=== PATIENT | male | born 1980 | race Caucasian/White ===

== ENCOUNTER 2019-02-17 03:19 | Emergency (ER) | payer OTHER ==
[~2019-02-17] VITALS: Ht 180.3 cm; Wt 95.5 kg
[~2019-02-17 03:19] MED LIST: ACET500C5 PO; BEN25 PO; CEPH-443 PO; SULF1TAB31 PO
[2019-02-17 03:22] VITALS: Ht 180.3 cm; Wt 95.5 kg
--- NOTE | 2019-02-17 03:45 | ERD ---
ER Documentation Chief Complaint Chief Complaint states possible insect bite to right wrist, c/o swelling/itch HPI This is a 39-year-old male who presents to the emergency department with c omplaints of right wrist swelling/itchiness that started at around 6:20 PM today. 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 Stated that he is right-handed. Denies headache, head injury, loss of consciousness, dizziness, neck pain, neck stiffness, throat pain, difficulty swallowing, difficulty breathing lying flat, shoulder pain, chest pain, back pain, abdominal pain, nausea, vomiting, constipation, diarrhea, urinary symptoms, loss of bowel and bladder control, difficulty walking due to pain, numbness or tingling sensation, calf pain, recent travel, recent major surgery in the last 3 weeks, calf pain, recent long travel, recent exposure to any illness, recent antibiotic use in the last 3 months, fever, chills, seizures. Past medical history: Denies. Surgical history: Denies. Social: Denies smoking, use of alcoholic beverages, use of illegal drugs. ROS All systems reviewed and are negative except as per history of present illness. Medications Home Meds Active Scripts Diphenhydramine Hcl* (Benadryl*) 25 Mg Cap, 25 MG PO Q6 PRN for ITCHING/RASH, #30 TAB Prov:CHRISTYILACONCEPCIÓNDILANTOMASZ F 02/17/19 Sulfamethoxazole/Trimethoprim* (Bactrim Ds* Tablet) 1 Each Tablet, 1 TAB PO BID for 7 Days, #14 TAB Prov:PASILACONCEPCIÓNDILANTOMASZ F 02/17/19 Cephalexin* (Keflex*) 500 Mg Capsule, 500 MG PO TID for 7 Days, CAP Prov:PASILABAN,DILANAR F 02/17/19 Acetaminophen* (Tylophen*) 500 Mg Capsule, 1 CAP PO Q6H PRN for PAIN AND OR ELEVATED TEMP, #20 CAP Prov:PASILABAN,DILANAR F 02/17/19 Allergies Allergies: Coded Allergies: aspirin (Verified Allergy, Unknown, swelling, 02/17/19) PMhx/Soc Medical and Surgical Hx: pt denies Medical Hx, pt denies Surgical Hx Hx Alcohol Use: No Hx Substance Use: No Hx Tobacco Use: No Smoking Status: Never smoker Physical Exam Vitals Physical Exam Const: No acute distress Head: Atraumatic Eyes: Normal Conjunctiva ENT: Normal External Ears, Nose and Mouth. Neck: Full range of motion. No meningismus. Resp: Clear to auscultation bilaterally Cardio: Regular rate and rhythm, no murmurs Abd: Soft, non tender, non distended. Normal bowel sounds Skin: No petechiae or rashes Back: No midline or flank tenderness Ext: No cyanosis, or edema. Right wrist: Volar area has a swelling measuring approximately 1 cm in diameter. No induration. Redness and warm to touch was noted to the swelling. Good and full range of motion of his right wrist. Right radial pulse is within normal limits. Has good and full function of his right hand. No neurovascular deficits. Neur: Awake and alert. No neurological deficits. Psych: Normal Mood and Affect Results 24 hrs Current Medications Medications Dose Sig/Ruben Start Time Status Last (Trade) Ordered Route PRN Stop Time Admin Dose Reason Admin 1 tab ONCE ONCE 02/17/19 DC 02/17/19 Trimethoprim/ PO 04:00 02/17/19 03:59 04:01 Sulfamethoxaz ole (Bactrim (Ds)) Cephalexin 500 mg ONCE ONCE 02/17/19 DC 02/17/19 (Keflex) PO 04:00 02/17/19 03:59 04:01 25 mg ONCE ONCE 02/17/19 DC 02/17/19 Diphenhydrami PO 04:00 02/17/19 03:59 ne HCl 04:01 (Benadryl) 650 mg ONCE ONCE 02/17/19 DC 02/17/19 Acetaminophen PO 04:00 02/17/19 03:59 (Tylenol 04:01 Tab) Procedures/MDM Diagnostic tests: Offered x-ray but patient strongly refused. Treatment: Tylenol. Benadryl. Keflex. Bactrim. Re-evaluation: Denies pain. Has good and full function of his right hand. No neurovascular deficits. No arthralgia. No myalgia. No neurological deficits. Stated that he is comfortable to go home. Differential diagnosis I have low suspicion for sepsis, deeps space infection, tendon injury, West Nile Virus. Final diagnosis: Cellulitis. Prescription: Keflex. Bactrim. Benadryl. Tylenol. Follow-up with PCP in the next 24-48 hours. Come back here in the emergency department for any new symptoms or any worsening symptoms. All questions and concerns were answered. Patient and family members verbalized understanding and agreed with plan of care. Hemodynamically stable on discharge. Departure Diagnosis: Primary Impression: Insect bite, infected Condition: Stable Additional Instructions: Follow-up with PCP in the next 24-48 hours. Come back here in the emergency department for any new symptoms or any worsening symptoms. VALARIE BANUELOS Feb 17, 2019 03:45
[2019-02-17] MEDS ORDERED: TRIMETHOPRIM/SULFAMETHOX (DS) TAB PO ONE (04:00)
[2019-02-17] MEDS ORDERED: DIPHENHYDRAMINE 25 MG CAP PO ONE (04:00)
[2019-02-17] MEDS ORDERED: CEPHALEXIN 500 MG CAP PO ONE (04:00)
[2019-02-17] MEDS ORDERED: ACETAMINOPHEN 325 MG TAB PO ONE (04:00)
[2019-02-17 04:06] VITALS: BP 139/94; PULSE 65; RESP 20
== END 2019-02-17 04:07 | disposition home or self-care (01) ==
LOC: FTE 03:19
DX: S60.861A Insect bite (nonvenomous) of right wrist, initial encounter (principal); L08.9 Local infection of the skin and subcutaneous tissue, unspecified; W57.XXXA Bitten or stung by nonvenomous insect and other nonvenomous arthropods, initial encounter; Y92.9 Unspecified place or not applicable
CPT/HCPCS: 99283